=== PATIENT | female | born 2000 | race Caucasian/White ===

== ENCOUNTER 2022-04-14 08:38 | Outpatient (CLI) | payer OTHER, SELFPAY ==
--- NOTE | 2022-04-14 10:15 | CRLHL7_ITS ---
For Patients: As a result of the Century Cures Act, medical imaging exams and procedure reports are released immediately into your electronic medical record. You may view this report before your referring provider. If you have questions, please contact your health care provider. CLINICAL HISTORY: LOST IUD STRINGS TECHNIQUE: 2D bailey scale and color Doppler images were acquired of the pelvis using a transvaginal approach. FINDINGS: On transvaginal imaging, the myometrium has a normal uniform echotexture. Uterus measures 7.2 x 2.4 x 4.6 cm. Intrauterine device located in good position within the endometrial canal. The left ovary measures 4.3 x 2.9 x 3.4 cm in size and the right ovary measures 3.5 x 1.7 x 2.1 cm. The ovaries demonstrate normal arterial and venous blood flow on color Doppler analysis. There are no suspicious fluid collections within the cul-de-sac. Hemorrhagic cyst within the left ovary measuring 2.4 x 2.3 x 2.6 cm. IMPRESSION: IUD in good position within the endometrial canal. Dictated by Willy Blandon MD @ 04/14/2022 11:05:06 AM (Electronically Signed)
== END 2022-04-14 08:39 | disposition home or self-care (01) ==
PROVIDERS: Visit Provider Registered Nurse
DX: T83.32XA Displacement of intrauterine contraceptive device, initial encounter (principal)
CPT/HCPCS: 76830

== ENCOUNTER 2022-05-25 13:38 | Outpatient (CLI) | payer OTHER, SELFPAY ==
--- OUTSIDE RECORDS SUMMARY | 2022-05-25 13:41 | XMS_ITS | Clinical Summary ---
:2000 Author Organization [facility] [place] [address] Care Team Providers Name Role Phone Pcp, No Primary Care Provider Unavailable Allergies Active Allergy Reactions Severity Noted Date Comments Azithromycin *Unknown - Childhood Rxn 12/02/2018 Medications Medication Sig Dispensed Refills Start Date End Date Status levonorgestrel Inject 1 Device 1 Device 0 08/26/2018 08/26/20 23 Active intrauterine device intrauterine every (MIRENA) 20 mcg/24 5 years. hours (5 yrs) 52 mg IUD nitrofurantoin 0 03/22/2022 Acti ve macrocrystals/monohyd rate (MACROBID) 100 mg capsule Active Problems No known active problems Encounters Date Type Specialty Care Team Description 04/15/2022 Orders Only Staff, Other Clinical <No sc ans attached> 04/12/2022 Telephone Jannie Reilly MD Ques tions (concussion/) 03/24/2022 Office Visit Jannie Reilly MD Fall 03/24/2022 Travel from Last 3 Months Immunizations Name Administration Dates Next Due DTaP 11/23/2004, 05/26/2001, 05/19/2000, 03/16/2000, 01/19/2000 Dtap-5 Pertussis Antigens 11/23/2004, 05/16/2001, 05/19/2000 , 03/16/2000, 01/19/2000 HIB PRP-OMP (PedvaxHIB) 11/16/2000, 05/19/2000, 03/16/2000, 01/19/2000 HIB PRP-T (ActHIB,Hiberix) 11/16/2000, 05/19/2000, 0, 01/19/2000 HPV 9 (Gardasil 9) 05/18/2016, 11/07/2015, 05/19/2015 Hepatitis A (Peds) 11/28/2003, 11/12/2002 Hepatitis B (Peds) 08/15/2000, 03/16/2000, 01/19/2000 Inactivated Polio Vaccine 11/23/2004, 05/26/2001, 03/16/2000 , 01/19/2000 Influenza, IIV4 07/05/2019 MMR 11/28/2003, 11/16/2000 Meningococcal B 04/28/2018, 03/27/2018 Meningococcal Vaccine (Menactra) 05/18/2016, 12/09/2010 Pneumococcal conj 13-Valent (Prevnar 05/26/2001 13) Pneumococcal conj 7-Valent (Prevnar 7) 05/26/2001 Tdap 12/09/2010 Varicella Vaccine 12/06/2007, 05/26/2001 Family History Medical History Relation Name Comments No Known Problems Father No Known Problems Mother Relation Name Status Comments Father Mother Social History Tobacco Use Types Packs/Day Years Used Date Never Smoker Smokeless Tobacco: Never Used Tobacco Cessation: Counseling Given: Yes Alcohol Use Standard Drinks/Week Comments Not Currently 0 (1 standard drink = 0.6 oz pure alcoho l) Alcohol Habits Answer Date Recorded How often do you have a drink containing alcohol? Monthly or less 12/02/2018 How many drinks containing alcohol do you have on a 1 or 2 12/02/2018 typical day when you are drinking? How often do you have six or more drinks on one Never 12/02/2018 occasion? Comment: Not asked Sex Assigned at Date Recorded Not on file Obstetrics History Last Filed Vital Signs Vital Sign Reading Time Taken Comments Blood Pressure 133/80 03/24/2022 5:17 PM CDT Pulse 74 03/24/2022 5:17 PM CDT Temperature 36.9 ??C (98.5 ??F) 03/24/2022 5:17 PM CDT Respiratory Rate 16 03/24/2022 5:17 PM CDT Oxygen Saturation 100% 03/24/2022 5:17 PM CDT Inhaled Oxygen Concentration - - Weight 67.6 kg (149 lb) 07/18/2020 1:02 PM CDT Height 167.4 cm (5' 5.91) 07/18/2020 1:02 PM CDT Body Mass Index 24.12 07/18/2020 1:02 PM CDT Plan of Treatment Health Maintenance Due Date Last Done Comments Chlamydia for age 16-24 2015 Hepatitis C screening for age 0211/11/2017 18-79 Depression screening for age 12+ 08/11/2020 08/11/2019 Pap test for age 21-65 2020 Tetanus booster 12/09/2020 12/09/2010 BMI (ht and wt on same day) for 07/18/2021 07/18/2020, 03/0 05/2020, age 18+ 08/11/2019, Additional history exists Influenza for age 9-49 05/27/2022 07/05/2019 Tdap Completed 12/09/2010 HPV series for age 9-26 Completed 05/18/2016, 11/07/2015, 05/19/2015 COVID-19 vaccine series Completed 08/04/2021, 12/30/2020 Procedures Procedure Name Priority Date/Time Associated Diagnosis Comme nts SCAN 04/15/2022 12:00 AM Results for this CORRESP-IMAGING CDT procedure ar e in the results section. from Last 3 Months Results SCAN CORRESP-IMAGING (04/15/2022 12:00 AM CDT) Narrative 04/15/2022 12:00 AM CDT This result has an attachment that is no t available. Ordered by an unspecified provider. Other Clinical Staff OTHER from Last 3 Months Insurance Payer Benefit Plan / Subscriber ID Effective Dates Phone Addre ss Type Group PREFERRED ONE [employer] [id number] 2021-Present [id number] [place] [address] Care Teams Agricultural Commodities Inspector Relationship Specialty Start Date End Date Pcp, No PCP - General 12/02/18 .
[2022-05-25 18:36] LABS: Chlamydia DNA Amplified* NOT DETECTED (No Detected); GC DNA Amplified* NOT DETECTED (No Detected)
== END 2022-05-25 13:39 | disposition home or self-care (01) ==
PROVIDERS: Visit Provider Registered Nurse
DX: R10.2 Pelvic and perineal pain (principal); R35.0 Frequency of micturition; Z11.3 Encounter for screening for infections with a predominantly sexual mode of transmission
CPT/HCPCS: 87086; 87186; 87491; 87591